=== PATIENT | male | born 1990 | race Caucasian/White ===

== ENCOUNTER 2017-12-03 22:49 | Emergency (ER) | payer BC, OTHER ==
[~2017-12-03] VITALS: Ht 182.9 cm; Wt 95.3 kg
[~2017-12-03 22:49] MED LIST: ACET-1966 PO; ACET500T68 PO; ALBU8.5H12 IH; ASPI-757 PO; AZIT1PAC13 PO; BENZ100C4 PO; BUSP15TA69 PO; CODE118S5 PO; CYCL10TA29 PO; DIA5 PO; DIAZ-305 PO; ESOM40CA42 PO; HYDR-319 PO; HYDR-385 PO; HYDR-4309 PO; IBUP-1671 PO; IBUP600T22 PO; IBUP800T37 PO; KET10 PO; LEVE500T73 PO; LIDO20SO21 MM; LOR5/325 PO; LORA-630 PO; META800T18 PO; METH4TAB66 PO; OMEP-137 PO; OMEP-218 PO; ONDA4TAB PO; ONDA4TAB9 PO; ONDA4TAB97 PO; ONDA8TAB98 PO; OXYC-865 PO; PER PO; PHEN118S56 PO; POLY119P24 PO; PRED-1 PO; PRED20TA6 PO; PROM-110 PO; ROBC PO; SERT-184 PO; SUMA5SPR6 ENA; TRAM-420 PO; VENL25TA3 PO
[2017-12-03 22:55] VITALS: BP 127/87
[2017-12-03] MEDS ORDERED: AMPH30TA10 PO (22:55)
[2017-12-03] MEDS ORDERED: BUPR1FIL7 PO (22:55)
--- NOTE | 2017-12-03 22:56 | ER Report ---
History and Physical Time Seen By MD: 22:55 HPI/ROS CHIEF COMPLAINT: diarrhea, vomiting HISTORY OF PRESENT ILLNESS: This is a 27 year old male. He is having worsening vomiting and diarrhea. 3 days now, same time frame that he has been out of his Suboxone. Takes this for chronic back pain. Traveling home and sees his chronic pain specialist in [facility] on (2 days). Has had similar symptoms when out in the past. Has sweats and racing heart as well. Allergies: Coded Allergies: No Known Drug Allergies (Unverified , 12/03/17) Home Meds Active Scripts Lorazepam (ATIVAN) 1 Mg Tablet, 1 MG PO Q4-6H Y for ANXIETY, #6 TAB 0 Refills Prov:LAYLA GARCIA MD 12/03/17 Ondansetron (ZOFRAN ODT) 4 Mg Tab.rapdis, 4 MG PO Q6H Y for NAUSEA/VOMITING, # 20 TAB.ARABELLA 0 Refills Prov:LAYLA GARCIA MD 12/03/17 Reported Medications Amphet Asp/Amphet/D-Amphet (ADDERALL 30 MG TABLET) 30 Mg Tablet, 30 MG PO TID 12/03/17 Buprenorphine Hcl/Naloxone Hcl (SUBOXONE 8 MG-2 MG SL FILM) 1 Each Film, 1 EACH PO BID, FILM 12/03/17 Discontinued Scripts Levetiracetam (LEVETIRACETAM) 500 Mg Tablet, 500 MG PO BID, #60 TAB 0 Refills Prov:LAYLA GARCIA MD 05/18/17 Cyclobenzaprine Hcl (CYCLOBENZAPRINE HCL) 10 Mg Tablet, 10 MG PO Q8H Y for MUSCLE SPASMS, #20 TAB 0 Refills Prov:LAYLA GARCIA MD 05/18/17 Ketorolac Tromethamine (KETOROLAC TROMETHAMINE) 10 Mg Tab, 10 MG PO Q6H Y for PAIN, #12 TAB 0 Refills Prov:LAYLA GARCIA MD 05/18/17 Reviewed Nurses Notes: Yes Hx Smoking: Yes (1/2 PPD- 5 YEARS) Smoking Status: Current: Every Day Smoker Exposure to Second Hand Smoke?: No Hx Substance Use Disorder: No (weed) Hx Alcohol Use: Yes (occ) Constitutional Vital Sign - Last 24 Hours 12/03/17 22:55 Temp 98.0 Pulse 98 Resp 16 B/P (MAP) 127/87 Pulse Ox 100 O2 Delivery Room Air Physical Exam General Appearance: The patient is alert, has no immediate need for airway protection and no current signs of toxicity. Eyes: Pupils equal and round no injection. Neck: Neck is supple and non tender. Respiratory: Lungs are clear to auscultation. Cardiac: Tachycardia with regular rhythm. Gastrointestinal: Abdomen is soft and non tender, hyperactive bowel sounds. Musculoskeletal: Extremities have full range of motion. Skin: warm and diaphoretic. DIFFERENTIAL DIAGNOSIS: After history and physical exam differential diagnosis was considered for nausea and diarrhea with tachycardia due to opioid withdrawal. Medical Decision Making ED Course/Re-evaluation ED Course Nursing attempted several times to start an IV but were unable. Gave IM doses of Phenergan 25mg and Ativan 1mg. Gave oral dose of Clonidine. These helped a little with symptoms but did not completely take them away. Discussed continuing Clonidine 0.1mg tablets, Ativan 1mg tablets and Zofran until he sees his doctor in 2 days. Decision to Disposition Date: Dec 03, 2017 Decision to Disposition Time: 23:21 Depart Departure Latest Vital Signs Vital Signs Date Time Temp Pulse Resp B/P (MAP) Pulse Ox O2 Delivery O2 Flow Rate FiO2 12/03/17 22:55 98.0 98 16 127/87 100 Room Air Impression: Primary Impression: Acute opioid withdrawal Condition: Condition Unchanged Disposition: HOME OR SELF-CARE New Scripts Lorazepam (ATIVAN) 1 Mg Tablet 1 MG PO Q4-6H Y for ANXIETY, #6 TAB 0 Refills Prov: LAYLA GARCIA MD 12/03/17 Ondansetron (ZOFRAN ODT) 4 Mg Tab.rapdis 4 MG PO Q6H Y for NAUSEA/VOMITING, #20 TAB.ARABELLA 0 Refills Prov: LAYLA GARCIA MD 12/03/17 Patient Instructions: Opioid Dependence (ED), Opioid Withdrawal (ED) Additional Instructions: Take the Clonidine 0.1mg twice a day to help with racing heart rate and elevated blood pressure associated with opioid withdrawal. Take Zofran 4mg oral dissolving tablets, take 1 every 4 hours as needed for nausea/vomiting. Take Ativan 1mg tablets, 1/2 to 1 tablet every 6 hours as needed for symptoms of withdrawal. See your regular prescribing doctor as soon as you are able to get re-started on the Suboxone. LAYAL GARCIA MD Dec 03, 2017 22:56
[2017-12-03] MEDS ORDERED: ONDANSETRON 4 MG/2 ML VIAL IVP ONE (23:10)
[2017-12-03] MEDS ORDERED: NS(*) 0.9% 1000 ML BAG 1,000 ML IV ONE (23:10)
[2017-12-03] MEDS ORDERED: cloNIDine HCL 0.1 MG TAB PO ONE ×2 (23:10→23:20)
[2017-12-03] MEDS ORDERED: LORazepam 1 MG TAB PO ONE (23:20)
[2017-12-03] MEDS ORDERED: PROMETHAZINE 25 MG/ML 1 ML AMP IM ONE (23:20)
[2017-12-03] MEDS ORDERED: LORazepam 2 MG/ML VIAL IM ONE (23:20)
[2017-12-03] MEDS ORDERED: ONDANSETRON 4 MG ODT TH SL ONE (23:20)
[2017-12-03] MEDS ORDERED: ONDA4TAB PO (23:26)
[2017-12-03] MEDS ORDERED: LORA-1456 PO (23:26)
== END 2017-12-03 23:54 | disposition home or self-care (01) ==
LOC: ER 23:22
DX: F11.23 Opioid dependence with withdrawal (principal)
CPT/HCPCS: 96372; 99283; J2060; J2550; S0119

== ENCOUNTER 2018-10-17 22:24 | Emergency (ER) | payer BC, OTHER ==
[2018-10-17] MEDS ORDERED: DIPHTH/TETANUS/ACEL. PERTUSSIS IM ONLY ONE (22:30)
[2018-10-17 22:55] LABS: PLATELET COUNT, AUTOMATED 191 K/uL (150-450)
[2018-10-17 23:30] VITALS: BP 127/77
--- NOTE | 2018-10-17 23:52 | ER Report ---
History and Physical Time Seen By MD: 22:24 Hx. of Stated Complaint: PT UNRESPONSIVE PER EMS, AFTER NARCAN ALERT. PT DENIES DRUG USE. CURRENTLY NO COMPLAINTS HPI/ROS CHIEF COMPLAINT: Unresponsive HISTORY OF PRESENT ILLNESS: 28-year-old male brought in by EMS. Patient was found unresponsive collapsed in the bathroom. Narcan was administered intranasally. Patient woke up he had a peripheral IV established, was given Narcan 2 mg additionally. Patient is alert and oriented 3 and responding properly now. He is stable vital signs on arrival. Patient denies drug ingestion or alcohol. REVIEW OF SYSTEMS: Respiratory: No cough, no dyspnea. Cardiovascular: No chest pain, no palpitations. Gastrointestinal: No vomiting, no abdominal pain. Musculoskeletal: No back pain. Allergies: Coded Allergies: No Known Drug Allergies (Unverified , 12/03/17) Home Meds Active Scripts Lorazepam (ATIVAN) 1 Mg Tablet, 1 MG PO Q4-6H PRN for ANXIETY, #6 TAB 0 Refills Prov:LAYLA GARCIA MD 12/03/17 Ondansetron (ZOFRAN ODT) 4 Mg Tab.rapdis, 4 MG PO Q6H PRN for NAUSEA/VOMITING, #20 TAB.ARABELLA 0 Refills Prov:LAYLA GARCIA MD 12/03/17 Reported Medications Amphet Asp/Amphet/D-Amphet (ADDERALL 30 MG TABLET) 30 Mg Tablet, 30 MG PO TID 12/03/17 Buprenorphine Hcl/Naloxone Hcl (SUBOXONE 8 MG-2 MG SL FILM) 1 Each Film, 1 EACH PO BID, FILM 12/03/17 Past Medical/Surgical History History of opiate abuse, opiate withdrawal Hx Smoking: Yes (1/2 PPD- 5 YEARS) Smoking Status: Current: Every Day Smoker Exposure to Second Hand Smoke?: No Hx Substance Use Disorder: No (weed) Hx Alcohol Use: No Constitutional Vital Sign - Last 24 Hours 10/17/18 10/17/18 10/17/18 10/17/18 22:22 22:24 22:30 22:39 Temp 98.0 Pulse 118 107 97 Resp 16 18 10 B/P (MAP) 135/99 128/85 (99) Pulse Ox 91 92 89 O2 Delivery Room Air 10/17/18 10/17/18 10/17/18 10/17/18 22:54 23:00 23:09 23:24 Pulse 103 108 91 Resp 7 14 13 B/P (MAP) 128/84 (99) Pulse Ox 85 89 84 10/17/18 10/17/18 10/17/18 10/18/18 23:30 23:39 23:54 00:09 Pulse 96 ??? 83 Resp 10 B/P (MAP) 127/77 (94) Pulse Ox 89 93 Physical Exam Vital signs stable, afebrile, pulse ox normal General Appearance: The patient is alert, has no immediate need for airway protection and no current signs of toxicity. Alert and oriented 3, palpation of the head and neck reveal no tenderness or trauma HEENT: Pupils equal and round no injection. Oropharynx without dental trauma, no tongue bite rivera Respiratory: Chest is non tender, lungs are clear to auscultation. Cardiac: regular rate and rhythm Gastrointestinal: Abdomen is soft and non tender, no masses, bowel sounds normal. Musculoskeletal: Neck: Neck is supple and non tender. Extremities have full range of motion and are non tender. Skin: No rashes or lesions. DIFFERENTIAL DIAGNOSIS: After history and physical exam differential diagnosis was considered for altered mental status including but not limited to hypoglycemia, infectious process, electrolyte abnormality, head injury and intoxicants. Medical Decision Making Data Points Result Diagram: 10/17/18224510/17/182245 Laboratory Hematology Test 10/17/18 22:46 10/17/18 23:50 Red Blood Count 5.55 M/uL (4.00-5.60) Mean Corpuscular Volume 85.4 fL (80.0-96.0) Mean Corpuscular Hemoglobin 29.4 pg (26.0-33.0) Mean Corpuscular Hemoglobin Concent 34.4 g/dL (32.0-36.0) Red Cell Distribution Width 13.4 % (11.5-14.5) Mean Platelet Volume 9.7 fL (7.2-11.1) Neutrophils (%) (Auto) 85.0 % (39.4-72.5) Lymphocytes (%) (Auto) 10.6 % (17.6-49.6) Monocytes (%) (Auto) 2.2 % (4.1-12.4) Eosinophils (%) (Auto) 1.3 % (0.4-6.7) Basophils (%) (Auto) 0.9 % (0.3-1.4) Nucleated RBC Relative Count (auto) 0.0 /100WBC Neutrophils # (Auto) 8.4 K/uL (2.0-7.4) Lymphocytes # (Auto) 1.0 K/uL (1.3-3.6) Monocytes # (Auto) 0.2 K/uL (0.3-1.0) Eosinophils # (Auto) 0.1 K/uL (0.0-0.5) Basophils # (Auto) 0.1 K/uL (0.0-0.1) Nucleated RBC Absolute Count (auto) 0.00 K/uL Peripheral Blood Smear Yes Y/N Sodium Level 134 mmol/L (137-145) Potassium Level 4.8 mmol/L (3.5-5.0) Chloride Level 103 mmol/L (98-107) Carbon Dioxide Level 22 mmol/L (22-30) Blood Urea Nitrogen 15 mg/dl (9-21) Creatinine 1.00 mg/dl (0.66-1.25) Glomerular Filtration Rate Calc > 60.0 Random Glucose 237 mg/dl (75-110) Calcium Level 8.1 mg/dl (8.4-10.2) Magnesium Level 1.8 mg/dl (1.7-2.2) Total Bilirubin 0.5 mg/dl (0.2-1.3) Aspartate Amino Transf (AST/SGOT) 36 U/L (0-35) Alanine Aminotransferase (ALT/SGPT) 37 U/L (0-56) Alkaline Phosphatase 55 U/L (0-126) Total Protein 7.1 g/dl (6.3-8.2) Albumin 4.0 g/dl (3.5-5.0) Salicylates Level < 10 mg/L Salicylate Last Dose Date unk Acetaminophen Level < 10 ug/ml Serum Alcohol < 10 mg/dl Urine Color Yellow Urine Clarity Clear Urine pH 5.0 pH (4.8-9.5) Urine Specific [place] 1.021 Urine Protein 30 mg/dL (NEGATIVE) Urine Glucose (UA) 150 mg/dL (NEGATIVE) Urine Ketones Negative mg/dL (NEGATIVE) Urine Blood Negative (NEGATIVE) Urine Nitrite Negative (NEGATIVE) Urine Bilirubin Negative (NEGATIVE) Urine Urobilinogen Negative mg/dL (0.2-1.9) Urine Leukocyte Esterase Negative (NEGATIVE) Urine RBC 1 /HPF (0-2/HPF) Urine WBC 15 /HPF (0-5/HPF) Urine Squamous Epithelial Cells None /LPF (</=FEW) Urine Bacteria Negative /HPF (NONE-FEW) Urine Hyaline Casts Many /LPF (NONE-FEW) Urine Mucus Few /HPF (NONE-FEW) Urine Opiates Screen Positive Urine Barbiturates Screen Negative Ur Tricyclic Antidepressants Screen Negative Urine Phencyclidine Screen Negative Urine Amphetamines Screen Negative Urine Benzodiazepines Screen Negative Urine Cocaine Screen Negative Urine Cannabinoids Screen Negative Chemistry Test 10/17/18 22:46 10/17/18 23:50 White Blood Count 9.8 k/uL (4.5-11.0) Red Blood Count 5.55 M/uL (4.00-5.60) Hemoglobin 16.3 g/dL (14.0-18.0) Hematocrit 47.4 % (42.0-52.0) Mean Corpuscular Volume 85.4 fL (80.0-96.0) Mean Corpuscular Hemoglobin 29.4 pg (26.0-33.0) Mean Corpuscular Hemoglobin Concent 34.4 g/dL (32.0-36.0) Red Cell Distribution Width 13.4 % (11.5-14.5) Platelet Count 191 K/uL (150-450) Mean Platelet Volume 9.7 fL (7.2-11.1) Neutrophils (%) (Auto) 85.0 % (39.4-72.5) Lymphocytes (%) (Auto) 10.6 % (17.6-49.6) Monocytes (%) (Auto) 2.2 % (4.1-12.4) Eosinophils (%) (Auto) 1.3 % (0.4-6.7) Basophils (%) (Auto) 0.9 % (0.3-1.4) Nucleated RBC Relative Count (auto) 0.0 /100WBC Neutrophils # (Auto) 8.4 K/uL (2.0-7.4) Lymphocytes # (Auto) 1.0 K/uL (1.3-3.6) Monocytes # (Auto) 0.2 K/uL (0.3-1.0) Eosinophils # (Auto) 0.1 K/uL (0.0-0.5) Basophils # (Auto) 0.1 K/uL (0.0-0.1) Nucleated RBC Absolute Count (auto) 0.00 K/uL Peripheral Blood Smear Yes Y/N Glomerular Filtration Rate Calc > 60.0 Calcium Level 8.1 mg/dl (8.4-10.2) Magnesium Level 1.8 mg/dl (1.7-2.2) Total Bilirubin 0.5 mg/dl (0.2-1.3) Aspartate Amino Transf (AST/SGOT) 36 U/L (0-35) Alanine Aminotransferase (ALT/SGPT) 37 U/L (0-56) Alkaline Phosphatase 55 U/L (0-126) Total Protein 7.1 g/dl (6.3-8.2) Albumin 4.0 g/dl (3.5-5.0) Salicylates Level < 10 mg/L Salicylate Last Dose Date unk Acetaminophen Level < 10 ug/ml Serum Alcohol < 10 mg/dl Urine Color Yellow Urine Clarity Clear Urine pH 5.0 pH (4.8-9.5) Urine Specific [place] 1.021 Urine Protein 30 mg/dL (NEGATIVE) Urine Glucose (UA) 150 mg/dL (NEGATIVE) Urine Ketones Negative mg/dL (NEGATIVE) Urine Blood Negative (NEGATIVE) Urine Nitrite Negative (NEGATIVE) Urine Bilirubin Negative (NEGATIVE) Urine Urobilinogen Negative mg/dL (0.2-1.9) Urine Leukocyte Esterase Negative (NEGATIVE) Urine RBC 1 /HPF (0-2/HPF) Urine WBC 15 /HPF (0-5/HPF) Urine Squamous Epithelial Cells None /LPF (</=FEW) Urine Bacteria Negative /HPF (NONE-FEW) Urine Hyaline Casts Many /LPF (NONE-FEW) Urine Mucus Few /HPF (NONE-FEW) Urine Opiates Screen Positive Urine Barbiturates Screen Negative Ur Tricyclic Antidepressants Screen Negative Urine Phencyclidine Screen Negative Urine Amphetamines Screen Negative Urine Benzodiazepines Screen Negative Urine Cocaine Screen Negative Urine Cannabinoids Screen Negative Toxicology Test 10/17/18 22:46 10/17/18 23:50 Salicylates Level < 10 mg/L Salicylate Last Dose Date unk Acetaminophen Level < 10 ug/ml Serum Alcohol < 10 mg/dl Urine Opiates Screen Positive Urine Barbiturates Screen Negative Ur Tricyclic Antidepressants Screen Negative Urine Phencyclidine Screen Negative Urine Amphetamines Screen Negative Urine Benzodiazepines Screen Negative Urine Cocaine Screen Negative Urine Cannabinoids Screen Negative Urinalysis Test 10/17/18 23:50 Urine Color Yellow Urine Clarity Clear Urine pH 5.0 pH (4.8-9.5) Urine Specific [place] 1.021 Urine Protein 30 mg/dL (NEGATIVE) Urine Glucose (UA) 150 mg/dL (NEGATIVE) Urine Ketones Negative mg/dL (NEGATIVE) Urine Blood Negative (NEGATIVE) Urine Nitrite Negative (NEGATIVE) Urine Bilirubin Negative (NEGATIVE) Urine Urobilinogen Negative mg/dL (0.2-1.9) Urine Leukocyte Esterase Negative (NEGATIVE) Urine RBC 1 /HPF (0-2/HPF) Urine WBC 15 /HPF (0-5/HPF) Urine Squamous Epithelial Cells None /LPF (</=FEW) Urine Bacteria Negative /HPF (NONE-FEW) Urine Hyaline Casts Many /LPF (NONE-FEW) Urine Mucus Few /HPF (NONE-FEW) ED Course/Re-evaluation ED Course Patient was admitted to an examination room. H&P was done. The dental diagnoses was considered. Patient alert and responsive. He received Narcan in the field. He denies any opiate ingestion. He does have a distant history of Suboxone use and opiate withdrawal noted in his records from many months ago. Over the last year. Patient responded and will cup to Narcan. Diagnostic studies were sent off. They're unremarkable. Patient's tox screen was positive for opiates. Patient was monitored for 2 hours and 15 minutes remained alert and awake. He did not relapse Sari Michael dosage of his Narcan. He was discharged home with a prescription for home Narcan use. Patient advised to refrain from using opiates. Decision to Disposition Date: Oct 17, 2018 Decision to Disposition Time: 23:50 Depart Departure Latest Vital Signs Vital Signs Date Time Temp Pulse Resp B/P (MAP) Pulse Ox O2 Delivery O2 Flow Rate FiO2 10/18/18 00:09 83 93 10/17/18 23:39 10 10/17/18 23:30 127/77 (94) 10/17/18 22:22 98.0 Room Air Impression: Primary Impression: Opiate overdose Additional Impression: History of chronic back pain Condition: Improved Disposition: HOME OR SELF-CARE Patient Instructions: GENERAL ER DISCHARGE INSTRUCTIONS Problem Qualifiers Primary Impression: Opiate overdose Encounter type: initial encounter Injury intent: accidental or unintentional Qualified Codes: T40.601A - Poisoning by unspecified narcotics, accidental (unintentional), initial encounter MARK ESCOBAR DO Oct 17, 2018 23:52
== END 2018-10-18 00:40 | disposition home or self-care (01) ==
LOC: ER 22:30
DX: T40.601A Poisoning by unspecified narcotics, accidental (unintentional), initial encounter (principal); G89.29 Other chronic pain
CPT/HCPCS: 80305; 80320; 80329; 81001; 82040; 82247; 82310; 82374; 82435; 82565; 82947; 83735; 84075; 84132; 84155; 84295; 84443; 84450; 84460; 84520; 85025; 90715; 96372; 99283

== ENCOUNTER → 2018-10-17 | Outpatient (CLI) | payer BC, OTHER ==
[~2018-10-17] MED LIST changes: +AMPH30TA10 PO; +BUPR1FIL7 PO; -HYDR-4309 PO; +HYDR-653 PO; +LORA-1456 PO
== END ==
LOC: AMB 22:01
PROVIDERS: ATTEND Nurse Practitioner
DX: R40.20 Unspecified coma (principal); R23.0 Cyanosis; R06.89 Other abnormalities of breathing
CPT/HCPCS: A0425; A0427

== ENCOUNTER 2018-10-19 11:56 | Emergency (ER) | payer BC, OTHER ==
--- NOTE | 2018-10-19 12:02 | ER Report ---
History and Physical Time Seen By MD: 11:50 Hx. of Stated Complaint: POSSIBLE DRUG OVERDOSE. HPI/ROS CHIEF COMPLAINT: altered mental status, heroin OD HISTORY OF PRESENT ILLNESS: Patient is able to give only limited history due to mental status. Per EMS, neighbor called because they could hear patient snoring loudly. Patient was found with legs outside of bathroom needle on the floor next to him with decreased respirations consistent with heroin overdose. EMS administered Narcan 2 intranasal and route with improvement in mental status. At time of arrival, patient is arousable to painful stimuli and able to answer that he injected heroin. He denies pain, denies other drugs or alcohol. REVIEW OF SYSTEMS: Unable to obtain further ROS due to pt's mental status Remainder of the 14 system rev: Yes Allergies: Coded Allergies: No Known Drug Allergies (Unverified , 10/19/18) Home Meds Active Scripts Lorazepam (ATIVAN) 1 Mg Tablet, 1 MG PO Q4-6H PRN for ANXIETY, #6 TAB 0 Refills Prov:LAYLA GARCIA MD 12/03/17 Ondansetron (ZOFRAN ODT) 4 Mg Tab.rapdis, 4 MG PO Q6H PRN for NAUSEA/VOMITING, #20 TAB.ARABELLA 0 Refills Prov:LAYLA GARCIA MD 12/03/17 Reported Medications Amphet Asp/Amphet/D-Amphet (ADDERALL 30 MG TABLET) 30 Mg Tablet, 30 MG PO TID 12/03/17 Buprenorphine Hcl/Naloxone Hcl (SUBOXONE 8 MG-2 MG SL FILM) 1 Each Film, 1 EACH PO BID, FILM 12/03/17 Unable To Obtain Past Medical: Unable to Obtain/Update Reviewed Nurses Notes: Yes Old Medical Records Reviewed: Yes Hx Smoking: Yes (1/2 PPD- 5 YEARS) Smoking Status: Current: Every Day Smoker Exposure to Second Hand Smoke?: No Hx Substance Use Disorder: No (weed) Hx Alcohol Use: No Constitutional Vital Sign - Last 24 Hours 10/19/18 11:50 Temp 98.2 Pulse 109 Resp 24 B/P (MAP) 134/92 Pulse Ox 100 O2 Delivery Non-Rebreather Physical Exam General Appearance: Patient is not alert; is arousable with painful stimuli. At time of arrival, has gag reflex and tolerating secretions. 02 by NRB applied Eyes: pupils are 3mm bilaterally, minimall reactive ENT, Mouth: Mucous membranes are moist. Respiratory: There are no retractions, lungs are clear to auscultation. RR 12-13 at arrival Cardiovascular: Regular rate and rhythm. Gastrointestinal: Abdomen is soft and non tender, no masses, bowel sounds normal. Neurological: arousable to sternal rub, answers simple questions; mumbles answers Skin: Warm and dry, no rashes. Track rivera noted right AC Musculoskeletal: able to range all extremities. No external signs of trauma DIFFERENTIAL DIAGNOSIS: After history and physical exam differential diagnosis was considered for drug/etoh od, trauma, aspiration or other complication of OD. Medical Decision Making ED Course/Re-evaluation ED Course On repeat evaluation, patient awake, responsive. Patient denies suicidal ideation. Patient admits to heroin injection. Patient denies further drug or alcohol use. Patient has prescription for Narcan that he has not picked up. I counseled patient on importance of having life saving interventions around him working to get help so that he does not end up . Patient verbalized understanding. Patient ambulates without difficulty on discharge. Decision to Disposition Date: Oct 19, 2018 Decision to Disposition Time: 12:54 Depart Departure Latest Vital Signs Vital Signs Date Time Temp Pulse Resp B/P (MAP) Pulse Ox O2 Delivery O2 Flow Rate FiO2 10/19/18 11:50 98.2 109 24 134/92 100 Non-Rebreather Impression: Primary Impression: Accidental heroin overdose Condition: Improved Disposition: HOME OR SELF-CARE Patient Instructions: Adult Overdose (ED) Additional Instructions: As we discussed, you must fill the narcan prescription and make sure people around you have access to this, while seeking help to overcome your addiction before it kills you. Please return at any time you are ready for help and support. Problem Qualifiers Primary Impression: Accidental heroin overdose Encounter type: initial encounter Qualified Codes: T40.1X1A - Poisoning by heroin, accidental (unintentional), initial encounter DAHIANA CHRISTIANSEN MD Oct 19, 2018 12:02
--- NOTE | 2018-10-19 12:05 | EKG ---
FACILITY: [facility] PATIENT NAME: HENNA TALAVERA : [id number] MR: [id number] V: [id number] EXAM DATE: ORDERING PHYSICIAN: DAHIANA CHRISTIANSEN TECHNOLOGIST: SOO Test Reason : ALTERED MENTAL STATU Blood Pressure : / mmHG Vent. Rate : 102 BPM Atrial Rate : 102 BPM P-R Int : 144 ms QRS Dur : 094 ms QT Int : 344 ms P-R-T Axes : 080 083 035 degrees QTc Int : 448 ms Sinus tachycardia Otherwise normal ECG When compared with ECG of 06-NOV-2015 17:20, No significant change was found Confirmed by BELLE SOUZA ([id number]) on 10/20/2018 6:18:59 AM Referred By: KULDIP Confirmed By:BELLE SOUZA
--- NOTE | 2018-10-19 12:32 | RADIOLOGY IMAGING REPORT ---
FACILITY: [facility] PATIENT NAME: Rashel Christopher : 1990 MR: [id number] V: [id number] EXAM DATE: ORDERING PHYSICIAN: DAHIANA CHRISTIANSEN TECHNOLOGIST: Location: [facility] [place] Patient: Rashel Christopher : 1990 Visit/Account:[id number] Date of Sevice: 10/19/2018 CHEST SINGLE AP Indication: Aspiration.. Comparison: None available Findings: Heart size within normal limits. There is no focal infiltrate or lobar consolidation. Mild left basilar atelectasis. No pneumothorax or pleural effusion. IMPRESSION: 1. No acute cardiopulmonary process. Report Dictated By: Gil Randle MD at 10/19/2018 12:28 PM Report E-Signed By: Gil Randle MD at 10/19/2018 12:28 PM WSN:[id number]
[2018-10-19 13:00] VITALS: BP 119/73
== END 2018-10-19 13:22 ==
LOC: ER 11:57
DX: T40.1X1A Poisoning by heroin, accidental (unintentional), initial encounter (principal); R00.0 Tachycardia, unspecified
CPT/HCPCS: 71045; 93005; 99284

== ENCOUNTER → 2018-10-19 | Outpatient (CLI) | payer BC, OTHER | LOC: AMB 11:25 | PROVIDERS: ATTEND Nurse Practitioner | DX: R40.20 Unspecified coma (principal); T40.1X2A Poisoning by heroin, intentional self-harm, initial encounter; Y92.039 Unspecified place in apartment as the place of occurrence of the external cause | CPT/HCPCS: A0425; A0427 ==